=== PATIENT | male | born 1960 | race Caucasian/White ===

== ENCOUNTER 2024-05-05 07:50 | Day surgery (SDC) | payer BC ==
[2024-05-04 08:46] VITALS: BMI 27.0
[2024-05-05 08:13] VITALS: TEMP 98.2
[2024-05-05] MEDS: IV FLUID CONTINUATION 1,000 ML IV ONE (08:13)
[2024-05-05] MEDS: LACTATED RINGERS 1,000 ML IV SCH (08:14)
[2024-05-05] MEDS ORDERED: PROPOFOL 10 MG/ML 20 ML VIAL IV ONE (08:18)
[2024-05-05] MEDS ORDERED: LIDOCAINE 1% INJ 10MG/ML (20 ML MDV) ONE (08:18)
[2024-05-05] MEDS ORDERED: MIDAZOLAM 2 MG/2 ML VIAL ONE (08:18)
--- NOTE | 2024-05-05 08:39 | P.PCN ---
Date of Procedure: 05/05/24 Preoperative Diagnosis: Positive Cologuard Postoperative Diagnosis: Sigmoid colon polyp x 2 Procedure(s) Performed: Colonoscopy with hot snare polypectomy Anesthesia: MAC Surgeon: Renée Romero Pathology: other (Sigmoid colon polyp x 2) Condition: stable Disposition: same day Indications for Procedure: 63-year-old male presents today for colonoscopy. He recently had a positive Cologuard exam. Denies any blood in his stool. No family history of colon cancer. Risks, benefits and alternatives were provided to the patient. All questions answered. Operative Findings: Sigmoid colon polyp, small, x 2 Description of Procedure: The patient was brought to the endoscopy suite and placed in left lateral decubitus position and adequate sedation was achieved using conscious sedation. Digital rectal exam was performed and mild internal hemorrhoids were palpated. An endoscope was then placed in the rectum and advanced to the cecum as identified by landmarks including the appendiceal orifice and the ileocecal valve. The prep was good. The colonoscope was then slowly withdrawn, examining for any mucosal abnormalities. The cecum, ascending, transverse, descending and sigmoid colon were visualized adequately. There were no large neoplastic lesions noted throughout the colon. 2 small polyps were noted in the sigmoid colon. Both of these were removed with hot snare polypectomy. Hemostasis was maintained. No significant evidence of diverticulosis. Hemostasis was maintained. Retroflexion was performed in the rectum and mild internal hemorrhoid. Excess air was removed, the colonoscope withdrawn and the procedure terminated. The patient was then transferred to the recovery unit in stable condition. Repeat colonoscopy should be performed in 5 years.
[2024-05-05 09:03] VITALS: BP 113/69; PULSE 64; RESP 16
== END 2024-05-05 09:20 | disposition home or self-care (01) ==
LOC: ORWHC2ENDO 07:50
PROVIDERS: ATTEND Surgery
DX: D12.5 Benign neoplasm of sigmoid colon (principal); K64.8 Other hemorrhoids; E78.5 Hyperlipidemia, unspecified; R00.2 Palpitations; Z79.899 Other long term (current) drug therapy
CPT/HCPCS: 88305; 45385; J2250; J2003; J2704; 45380